=== PATIENT | male | born 1985 | race Caucasian/White ===

== ENCOUNTER 2019-03-21 22:33 | Emergency (ER) | payer BC ==
[~2019-03-21] VITALS: Ht 188 cm; Wt 95.0 kg
[2019-03-21] MEDS ORDERED: LIDOcaine 1% 30ml preserv. free vial IJ ONE (23:15)
--- NOTE | 2019-03-22 00:12 | NUR ---
Dr Wan engaged in suturing.
[2019-03-22 00:49] VITALS: BP 130/89
== END 2019-03-22 00:42 | disposition home or self-care (01) ==
LOC: ER 22:34
DX: S61.412A Laceration without foreign body of left hand, initial encounter (principal); W26.8XXA Contact with other sharp object(s), not elsewhere classified, initial encounter; Y93.89 Activity, other specified; Y92.89 Other specified places as the place of occurrence of the external cause; Y99.8 Other external cause status
CPT/HCPCS: 12001; 99283; J3490